=== PATIENT | male | born 1985 | race Caucasian/White ===

== ENCOUNTER 2016-12-18 08:33 | Day surgery (SDC) | payer MEDICARE, OTHER ==
[2016-12-15 15:38] VITALS: BMI 21.4
--- NOTE | 2016-12-18 07:04 | P.GSHP ---
History of Present Illness H&P Date: 12/18/16 CHIEF COMPLAINT: Cholecystitis HISTORY OF PRESENT ILLNESS: The patient is a 31-year-old male who presents with history of epigastric including right upper quadrant abdominal pain. He underwent diagnostic studies for the gallbladder. Separately his clinical picture was consistent with cholecystitis. Now he presents for surgical intervention. PAST MEDICAL HISTORY: Please see list PAST SURGICAL HISTORY: Please see list MEDICATIONS: Please see list ALLERGIES: Denies. SOCIAL HISTORY: No illicit drug use or recent tobacco use FAMILY HISTORY: Pertinent for gallbladder disease REVIEW OF ORGAN SYSTEMS: CONSTITUTIONAL: No reports of fevers or chills. HEENT: Denies any troubles with the vision or hearing. PHYSICAL EXAM: VITAL SIGNS: Afebrile vital signs stable GENERAL: Well-developed pleasant male in no acute distress. HEENT: No scleral icterus. Extraocular movements grossly intact. Moist buccal mucosa. NECK: Supple without lymphadenopathy. CHEST: Unlabored respirations. Equal bilateral excursions. CARDIOVASCULAR: Regular rate regular rhythm rhythm. Distal 2+ pulses. ABDOMEN: Soft, nondistended. Tender along the epigastrium and right upper quadrant. MUSCULOSKELETAL: No clubbing, cyanosis, or edema. NEURO :Moves all extremities 5+/5. PSYCH: Alert and oriented to person, place and time. ASSESSMENT: 1. Epigastric and right upper quadrant abdominal pain 2. Chronic cholecystitis PLAN: 1. Will need a laparoscopic cholecystectomy possible open. Benefits and risks were described. 2. Heparin for DVT prophylaxis 5000 units. 3. Antibiotic prophylaxis. 4. Will need CBC and comprehensive metabolic panel on day of this procedure. Past Medical History Past Medical History: Asthma, GERD/Reflux Additional Past Medical History / Comment(s): plantar warts with laser tx every 2 weeks History of Any Multi-Drug Resistant Organisms: None Reported Additional Past Surgical History / Comment(s): BENIGN CYST REMOVED BASE OF TAILBONE. hemorrhoidectomy Past Anesthesia/Blood Transfusion Reactions: No Reported Reaction Smoking Status: Never smoker - Past Family History Father Additional Family Medical History / Comment(s): HX MS Medications and Allergies Home Medications Medication Instructions Recorded Confirmed Type Albuterol Inhaler [Ventolin Hfa 2 puff INHALATION DIRECTED PRN 04/09/1412/15 History Inhaler] Benztropine Mesylate [Cogentin] 0.5 mg PO QAM 04/09/14 12/15/16 History Haldol D(Unknown Dose) 1 applic INJ Q30D 04/09/14 12/15/16 History OXcarbazepine [Trileptal] 600 mg PO BID 04/09/14 12/15/16 History Propranolol [Inderal] 20 mg PO BID 04/09/14 12/15/16 History Temazepam [Restoril] 15 - 30 mg PO HS PRN 05/03/14 12/15/16 History Ibuprofen [Motrin] 200 - 400 mg PO Q6HR PRN 12/15/16 12/15/16 History Naproxen Sodium 220 mg PO Q12H PRN 12/15/16 12/15/16 History Omeprazole [PriLOSEC] 40 mg PO AC-BRKFST 12/15/16 12/15/16 History Sertraline [Zoloft] 100 mg PO DAILY 12/15/16 12/15/16 History cloNIDine HCL [Catapres] 0.1 mg PO HS 12/15/16 12/15/16 History Allergies Allergy/AdvReac Type Severity Reaction Status Date / Time cephalexin [From Keflex] Allergy Unknown Verified 12/15/16 15:03 lithium Allergy Unknown Verified 12/15/16 15:03 Penicillins Allergy Unknown Verified 05/03/14 12:13 Childhood anticholinergics AdvReac URINARY Uncoded 05/03/14 12:13 RETENTION
[~2016-12-18 08:33] MED LIST: ACETAMINOPHEN IVPB ONE; CLINDAMYCIN 900 MG in DEXTROSE 5% IN WATER 50 ML IVPB ONE; DEXAMETHASONE SOD PHOSPHATE 10 MG/ML 1 ML VIAL IV ONE; GENTAMICIN 200 MG in SODIUM CHLORIDE 0.9% 100 ML IVPB ONE; HEPARIN SODIUM,PORCINE 5,000 UNIT/ML 1 ML VIAL SQ ONE; HYDROmorphone 1 MG/ML 1 ML SYRINGE IVP PRN; LACTATED RINGERS 1,000 ML IV SCH; LIDOCAINE 1% 20 ML VIAL (10MG/ML) FOR IV START INTRADERMA PRN; ONDANSETRON 4 MG/2 ML VIAL IVP ONE; SCOPOLAMINE 1.5MG/72HR PATCH TRANSDERM ONE
[2016-12-18] MEDS ORDERED: ACETAMINOPHEN IVPB ONE (08:45)
[2016-12-18] MEDS ORDERED: LACTATED RINGERS 1,000 ML IV ONE (08:59)
[2016-12-18 09:16] LABS: Basophils # (A) 0.1 k/uL (0-0.2); Basophils % (A) 1 %; CHCM 31.4; Eosinophils # (A) 0.1 k/uL (0-0.7); Eosinophils % (A) 2 %; HCT 34.6 % (39.0-53.0); HDW 2.81; Hypochromasia Slight; Luc # (Auto) 0.21; Luc % (Auto) 4; Lymphocytes # (A) 2.4 k/uL (1.0-4.8); Lymphocytes % (A) 44 %; MCH 26.3 pg (25.0-35.0); MCHC 31.7 g/dL (31.0-37.0); Mean Platelet Volume 7.6; Monocytes # (A) 0.5 k/uL (0-1.0); Monocytes % (A) 8 %; Neutrophils # (A) 2.2 k/uL (1.3-7.7); Neutrophils % (A) 40 %; RBC 4.17 m/uL (4.30-5.90); RDW 13.9 % (11.5-15.5); WBC 5.5 k/uL (3.8-10.6); WBC (Perox) 5.81
[2016-12-18 09:39] LABS: ALT 31 U/L (21-72); AST 25 U/L (17-59); Alkaline Phosphatase 94 U/L (38-126); Anion Gap 10 mmol/L; Blood Urea Nitrogen 9 mg/dL (9-20); Calcium 9.4 mg/dL (8.4-10.2); Carbon Dioxide 24 mmol/L (22-30); Chloride 105 mmol/L (98-107); Glucose 87 mg/dL (74-99); Non-African American GFR(MDRD) >60 (>60 ml/min/1.73 sqM); Potassium 4.2 mmol/L (3.5-5.1); Sodium 139 mmol/L (137-145); Total Bilirubin 0.3 mg/dL (0.2-1.3); Total Protein 7.2 g/dL (6.3-8.2)
[2016-12-18] MEDS ORDERED: KETOROLAC 30 MG/ML 1 ML VIAL ONE (10:09)
[2016-12-18] MEDS ORDERED: LIDOCAINE 1% INJ 10MG/ML (20 ML MDV) ONE (10:09)
[2016-12-18] MEDS ORDERED: NEOSTIGMINE 1 MG/ML 10 ML VIAL ONE (10:09)
[2016-12-18] MEDS ORDERED: PROPOFOL 10 MG/ML 20 ML VIAL IV ONE (10:09)
[2016-12-18] MEDS ORDERED: ROCURONIUM BROMIDE 10 MG/ML 10 ML VIAL IV ONE (10:09)
[2016-12-18] MEDS ORDERED: MIDAZOLAM 2 MG/2 ML VIAL ONE (10:09)
[2016-12-18] MEDS ORDERED: fentaNYL (PF) 50 MCG/ML 2 ML AMP ONE (10:09)
[2016-12-18] MEDS ORDERED: SUCCINYLCHOLINE CHLORIDE 100 MG/5 ML SYR IV ONE (10:09)
[2016-12-18] MEDS ORDERED: GLYCOPYRROLATE 0.2 MG/ML 2 ML VIAL ONE (10:09)
[2016-12-18] MEDS ORDERED: BUPIVACAINE-EPI 0.5%-1:200,000 10 ML VIAL SQ ONE ×2 (10:23→10:35)
--- NOTE | 2016-12-18 11:01 | P.OP ---
Date of Procedure: 12/18/16 Description of Procedure: SURGEON: KARLA ALBRECHT MD SUB PLANT MANAGER: None. PREOPERATIVE DIAGNOSES: 1. Chronic Cholecystitis. 2. Bipolar disorder. 3. Gastroesophageal reflux disease. 4. Right upper quadrant abdominal pain. 5. Family history of gallbladder disorder. POSTOPERATIVE DIAGNOSES: 1. Chronic Cholecystitis. 2. Bipolar disorder. 3. Gastroesophageal reflux disease. 4. Right upper quadrant abdominal pain. 5. Family history of gallbladder disorder. OPERATION: Laparoscopic cholecystectomy ANESTHESIA: General with 30 mL 0.25% Marcaine with epinephrine. ESTIMATED BLOOD LOSS: 5 mL. SPECIMENS REMOVED: Gallbladder. COMPLICATIONS: None. INDICATIONS: The patient is a 31-year-old male who presents with right upper quadrant abdominal pain andchronic cholelcystitis. Surgical intervention with a laparoscopic cholecystectomy was described at length including injury to the biliary tree, bleeding, infection, need for further surgery. Informed consent was obtained. DESCRIPTION OF THE PROCEDURE: The patient was brought to the operating room, laid in supine position. After general induction, the abdomen was prepped and draped in a standard sterile fashion. Prior to incision, a timeout protocol was confirmed with surgical team regarding patient's name, procedure to be performed including preoperative medications for which he had received heparin 5000 units subcutaneously as well as bilateral SCDs for DVT prophylaxis. A transverse 5 mm incision was made above the umbilicus and off to the right of the midline. Please note the skin was localized prior to incision. A 0 degree 5-mm laparoscopic trocar entry was performed and entered into the peritoneal cavity. The abdomen was insufflated with 15 mmHg pressure which he tolerated well. Diagnostic laparoscopy confirmed no injury to bowel, viscera or mesentery. Adhesions were found about the gallbladder. No inguinal hernias were found. The liver serosa was completely unremarkable. Next, two 5 mm trocars were placed along the right costal margin followed by a 11 mm port at the left upper quadrant. The patient was placed in steep reverse Trendelenburg position with the right side up. The gallbladder fundus was retracted over the dome of the liver. Initial attention was brought to the infundibulum which was gently retracted in the inferior lateral approach. Using a Kittner, the cystic duct including the cystic artery was carefully skeletonized. Using a large clip clinical systems analyst 2 clips were placed proximally, and 2 clip was placed distally along the cystic duct and then cut. Again care was taken to avoid any injury to the biliary tree as the common bile duct was clearly visualized during this portion of dissection. Next, the cystic artery was clipped twice proximally, once distally and then cauterized. Electro-Bovie cautery was used to remove the gallbladder from the hepatic fossa without decompression of the gallbladder. Hemostasis was checked and found to be adequate. The gallbladder was removed from the abdominal cavity using an Endo Catch bag and passed off for further pathological analysis. All instruments and pneumoperitoneum were removed from the abdominal cavity. The fascial defect was less than 8 mm for the 11-mm port site. The rest of incisions were reapproximated using 4-0 Monocryl in an interrupted subcuticular fashion. A total of 30 mL of 0.25% Marcaine with epinephrine was infiltrated to all wounds for postop analgesia. Dermabond was applied to the skin. At the end of the procedure, needle, sponge, and instrument count was verified correct by fisheries technician. The patient had tolerated the procedure well and was taken to postanesthesia care unit in stable condition. Intraoperative films were discussed and reviewed with the patient's family who were pleased with the level of care. FINDINGS: 1. Chronic cholecystitis with the adhesions about the gallbladder. 2. Unremarkable liver surface. 3. No inguinal hernias. Plan - Discharge Summary New Discharge Prescriptions: No Action Propranolol [Inderal] 20 mg PO BID OXcarbazepine [Trileptal] 600 mg PO BID Haldol D(Unknown Dose) 1 applic INJ Q30D Benztropine Mesylate [Cogentin] 0.5 mg PO QAM Albuterol Inhaler [Ventolin Hfa Inhaler] 2 puff INHALATION DIRECTED PRN PRN Reason: asthma Temazepam [Restoril] 15 - 30 mg PO HS PRN PRN Reason: Insomnia Omeprazole [PriLOSEC] 40 mg PO AC-BRKFST Sertraline [Zoloft] 100 mg PO DAILY Naproxen Sodium 220 mg PO Q12H PRN PRN Reason: Pain Ibuprofen [Motrin] 200 - 400 mg PO Q6HR PRN PRN Reason: Pain cloNIDine HCL [Catapres] 0.1 mg PO HS Discharge Medication List Albuterol Inhaler [Ventolin Hfa Inhaler] 2 puff INHALATION DIRECTED PRN 04/09 [History] Benztropine Mesylate [Cogentin] 0.5 mg PO QAM 04/09/14 [History] Haldol D(Unknown Dose) 1 applic INJ Q30D 04/09/14 [History] OXcarbazepine [Trileptal] 600 mg PO BID 04/09/14 [History] Propranolol [Inderal] 20 mg PO BID 04/09/14 [History] Temazepam [Restoril] 15 - 30 mg PO HS PRN 05/03/14 [History] Ibuprofen [Motrin] 200 - 400 mg PO Q6HR PRN 12/15/16 [History] Naproxen Sodium 220 mg PO Q12H PRN 12/15/16 [History] Omeprazole [PriLOSEC] 40 mg PO AC-BRKFST 12/15/16 [History] Sertraline [Zoloft] 100 mg PO DAILY 12/15/16 [History] cloNIDine HCL [Catapres] 0.1 mg PO HS 12/15/16 [History] Patient Instructions/Handouts: *Surgery [facility] - Scopalamine Patch Instructions
[2016-12-18 11:32] VITALS: TEMP 96.8
[2016-12-18] MEDS ORDERED: HYDROcodone/APAP 5-325MG 1 EACH TAB PO ONE (12:45)
[2016-12-18 14:50] VITALS: BP 112/73; PULSE 57; RESP 16
== END 2016-12-18 14:28 | disposition home or self-care (01) ==
LOC: OR 08:33
PROVIDERS: ATTEND Surgery Plastic and Reconstructive Surgery
DX: K81.1 Chronic cholecystitis (principal); F31.9 Bipolar disorder, unspecified; G47.00 Insomnia, unspecified; J45.909 Unspecified asthma, uncomplicated; K21.9 Gastro-esophageal reflux disease without esophagitis; Z79.899 Other long term (current) drug therapy; Z88.1 Allergy status to other antibiotic agents; Z88.0 Allergy status to penicillin
CPT/HCPCS: 88304; 80053; 85025; 47562; J2250; J1644; J1100; J2710; J2405; J2001; J3010; J1885; J1580; J0131; J0330; J2704

== ENCOUNTER 2019-02-08 07:46 | Day surgery (SDC) | payer MEDICARE, OTHER ==
[2019-02-06 09:19] VITALS: BMI 26.9
--- NOTE | 2019-02-08 05:03 | P.GSHP ---
History of Present Illness H&P Date: 02/08/19 CHIEF COMPLAINT: Colon screen HISTORY OF PRESENT ILLNESS: The patient is a 34-year-old male who presents has change in bowel habits. Lower endoscopy was offered for further evaluation and management. PAST MEDICAL HISTORY: Please see list. PAST SURGICAL HISTORY: Please see list. MEDICATIONS: Please see list. ALLERGIES: Please see list. SOCIAL HISTORY: No illicit drug use FAMILY HISTORY: No reports of Crohn disease or ulcerative colitis. REVIEW OF ORGAN SYSTEMS: CONSTITUTIONAL: No reports of fevers or chills. PHYSICAL EXAM: VITAL SIGNS: Stable GENERAL: Well-developed pleasant in no acute distress. HEENT: No scleral icterus. Extraocular movements grossly intact. Moist buccal mucosa. NECK: Supple without lymphadenopathy. CHEST: Unlabored respirations. Equal bilateral excursions. CARDIOVASCULAR: Regular rate and rhythm. Distal 2+ pulses. ABDOMEN: Soft, nontender, nondistended. MUSCULOSKELETAL: No clubbing, cyanosis, or edema. ASSESSMENT: 1. Change in bowel habits PLAN: 1. Recommend proceeding with a lower endoscopy Past Medical History Past Medical History: Asthma, GERD/Reflux Additional Past Medical History / Comment(s): plantar warts with laser tx every 2 weeks History of Any Multi-Drug Resistant Organisms: None Reported Past Surgical History: Cholecystectomy Additional Past Surgical History / Comment(s): BENIGN CYST REMOVED BASE OF TAILBONE. hemorrhoidectomy Past Anesthesia/Blood Transfusion Reactions: No Reported Reaction Smoking Status: Never smoker - Past Family History Father Family Medical History: No Reported History Additional Family Medical History / Comment(s): HX MS Medications and Allergies Home Medications Medication Instructions Recorded Confirmed Type Albuterol Inhaler [Ventolin Hfa 2 puff INHALATION DIRECTED PRN 04/09/14 02/06/19 History Inhaler] Benztropine Mesylate [Cogentin] 0.5 mg PO BID 04/09/14 02/06/19 History Haldol D(Unknown Dose) 1 applic INJ Q30D 04/09/14 02/06/19 History OXcarbazepine [Trileptal] 600 mg PO BID 04/09/14 02/06/19 History Propranolol [Inderal] 20 mg PO BID 04/09/14 02/06/19 History Ibuprofen [Motrin] 200 - 400 mg PO Q6HR PRN 12/15/16 02/06/19 History Omeprazole [PriLOSEC] 40 mg PO AC-BRKFST 12/15/16 02/06/19 History Sertraline [Zoloft] 100 mg PO DAILY 12/15/16 02/06/19 History Allergies Allergy/AdvReac Type Severity Reaction Status Date / Time cephalexin [From Keflex] Allergy Unknown Verified 02/06/19 08:53 lithium Allergy Unknown Verified 02/06/19 08:53 Penicillins Allergy Unknown Verified 02/06/19 08:53 Childhood anticholinergics AdvReac URINARY Uncoded 02/06/19 08:53 RETENTION
[~2019-02-08 07:46] MED LIST changes: -ACETAMINOPHEN IVPB ONE; -CLINDAMYCIN 900 MG in DEXTROSE 5% IN WATER 50 ML IVPB ONE; -DEXAMETHASONE SOD PHOSPHATE 10 MG/ML 1 ML VIAL IV ONE; -GENTAMICIN 200 MG in SODIUM CHLORIDE 0.9% 100 ML IVPB ONE; -HEPARIN SODIUM,PORCINE 5,000 UNIT/ML 1 ML VIAL SQ ONE; -HYDROmorphone 1 MG/ML 1 ML SYRINGE IVP PRN; -ONDANSETRON 4 MG/2 ML VIAL IVP ONE; -SCOPOLAMINE 1.5MG/72HR PATCH TRANSDERM ONE
[2019-02-08 08:16] VITALS: TEMP 100
[2019-02-08] MEDS ORDERED: PROPOFOL 10 MG/ML 20 ML VIAL IV ONE (08:28)
--- NOTE | 2019-02-08 08:50 | P.PCN ---
Date of Procedure: 02/08/19 Description of Procedure: PREOPERATIVE DIAGNOSIS: Rectal bleeding Change in bowel habits POSTOPERATIVE DIAGNOSIS: Rectal bleeding Change in bowel habits Internal hemorrhoid, grade 3 OPERATION: Colonoscopy to the ileocecal valve and appendiceal orifice. SURGEON: Fabby Romero MD. ANESTHESIA: MAC. INDICATIONS: The patient is a 34-year-old male who presents for change in bowel habits and rectal bleeding. Benefits and risks were described and informed consent was obtained. DESCRIPTION OF PROCEDURE: The patient had Suprep. He had been brought into the operating room and laid in the left lateral decubitus position. After adequate intravenous sedation, the rectum was examined with 2% lidocaine jelly. No anal fissure were encountered. The rectal tone was within normal limits. No lesions were palpated in the rectal vault. An Olympus colonoscope was advanced until the ileocecal valve and appe ndiceal orifice were clearly viewed. The prep was excellent with clear visualization of the mucosal folds. The scope was removed with visualization of each mucosal fold. No scattered diverticulosis was encountered. No colonic polyps were found. No evidence of focal colitis was found. Retroflexion of the scope demonstrated grade 3 internal hemorrhoids without active bleeding or inflammation. The colon was desufflated. The patient had tolerated the procedure well. Withdrawal time was over 6 minutes. FINDINGS: Aronchick preparation quality scale 1 (1-5) Internal hemorrhoids, grade 3 No external prolapsed hemorrhoids. No anal fissures No arteriovenous malformations. No adenomatous polyps. No focal colitis. RECOMMENDATIONS: Lower endoscopy as needed Plan - Discharge Summary Discharge Rx Participant: No New Discharge Prescriptions: No Action Propranolol [Inderal] 20 mg PO BID OXcarbazepine [Trileptal] 600 mg PO BID Haldol D(Unknown Dose) 1 applic INJ Q30D Benztropine Mesylate [Cogentin] 0.5 mg PO BID Albuterol Inhaler [Ventolin Hfa Inhaler] 2 puff INHALATION DIRECTED PRN PRN Reason: asthma Omeprazole [PriLOSEC] 40 mg PO AC-BRKFST Sertraline [Zoloft] 100 mg PO DAILY Ibuprofen [Motrin] 200 - 400 mg PO Q6HR PRN PRN Reason: Pain Discharge Medication List Albuterol Inhaler [Ventolin Hfa Inhaler] 2 puff INHALATION DIRECTED PRN 04/09/14 [History] Benztropine Mesylate [Cogentin] 0.5 mg PO BID 04/09/14 [History] Haldol D(Unknown Dose) 1 applic INJ Q30D 04/09/14 [History] OXcarbazepine [Trileptal] 600 mg PO BID 04/09/14 [History] Propranolol [Inderal] 20 mg PO BID 04/09/14 [History] Ibuprofen [Motrin] 200 - 400 mg PO Q6HR PRN 12/15/16 [History] Omeprazole [PriLOSEC] 40 mg PO AC-BRKFST 12/15/16 [History] Sertraline [Zoloft] 100 mg PO DAILY 12/15/16 [History] Follow up Appointment(s)/Referral(s): Fabby Romero MD [STAFF PHYSICIAN] - 02/28/19 Patient Instructions/Handouts: Hemorrhoids (DC), Rectal Bleeding (DC) Activity/Diet/Wound Care/Special Instructions: Drink 90 to 120 ounces of fluid daily Discharge Disposition: HOME SELF-CARE
[2019-02-08 09:07] VITALS: BP 111/64; PULSE 68; RESP 17
== END 2019-02-08 09:57 | disposition home or self-care (01) ==
LOC: ORWHC2ENDO 07:46
PROVIDERS: ATTEND Surgery Plastic and Reconstructive Surgery
DX: R19.4 Change in bowel habit (principal); K64.2 Third degree hemorrhoids; K21.9 Gastro-esophageal reflux disease without esophagitis; J45.909 Unspecified asthma, uncomplicated; Z79.899 Other long term (current) drug therapy; Z90.49 Acquired absence of other specified parts of digestive tract; Z98.890 Other specified postprocedural states; Z88.1 Allergy status to other antibiotic agents; Z91.048 Other nonmedicinal substance allergy status; Z88.0 Allergy status to penicillin; Z88.8 Allergy status to other drugs, medicaments and biological substances; F39 Unspecified mood [affective] disorder; Z88.5 Allergy status to narcotic agent
CPT/HCPCS: 45378; J2704

== ENCOUNTER 2023-11-08 06:30 | Day surgery (SDC) | payer MEDICARE, OTHER | END 2023-11-08 07:08 | LOC: ORWHC2ENDO 06:30 | PROVIDERS: ATTEND Internal Medicine Gastroenterology | DX: R11.10 Vomiting, unspecified | CPT/HCPCS: 91110 ==